=== PATIENT | female | born 1935 | race Caucasian/White ===

== ENCOUNTER 2022-09-12 14:36 | Inpatient (IN) ==
[2022-09-12] MEDS ORDERED: Glycerin ADULT 2.4 gm SUPP PR ONE (15:04)
[2022-09-12] MEDS ORDERED: Lactated Ringers 1000 ml BAG 1,000 ML IV ONE ×2 (15:09→18:13)
[2022-09-12] MEDS ORDERED: fentaNYL 100 mcg/2 ml 50 MCG/ML VIAL IV SLOW PU ONE ×2 (15:09→18:17)
[2022-09-12 18:44] LABS: ABS Lymphocytes 0.3 10^3/ul (1.0-4.8); ABS Monocytes 0.2 10^3/ul (0-0.8); ABS Neutrophils 6.5 10^3/ul (1.5-7.7); Hematocrit 34 % (35-47); Hemoglobin 11.1 g/dL (12.0-16.0); Lymphocyte % 4.5 %; Mean Corpuscular HGB Conc 33 g/dL (31-36); Mean Corpuscular Hemoglobin 29 pg (27-31); Mean Corpuscular Volume 88 fL (80-97); Mean Platelet Volume 7.8 fL (7.4-10.4); Platelet Count 158 10^3/uL (150-450); Red Blood Count 3.87 10^6 /uL (3.70-4.87); Red Cell Distribution Width 14 % (10-15); White Blood Count 7.1 10^3/uL (3.5-10.8)
[2022-09-12] MEDS ORDERED: Cefepime 1 GM in Dextrose 1 GM/50 ML BAG IV ONE (18:49)
[2022-09-12 19:02] LABS: Activated Partial Thrombo Time 23.7 seconds (26.0-38.0); INR 1.2 (0.89-1.11)
[2022-09-12 19:15] LABS: Albumin 3.4 g/dL (3.2-5.2); Albumin/Globulin Ratio 2.8 (1-3); C Reactive Protein 12.94 mg/L (<8.01); Calcium 9.2 mg/dL (8.6-10.3); Globulin 1.2 g/dL (2-4); Potassium 3.8 mmol/L (3.5-5.0); Total Bilirubin 2.1 mg/dL (0.2-1.0); Total Protein 4.6 g/dL (6.4-8.9); eGFR CKD-EPI 67.6 (>60)
[2022-09-12 20:37] LABS: High Sensitivity Troponin 1 Hr 234 pg/mL (<15)
[2022-09-12 21:31] LABS: Urine Appearance Clear; Urine Bilirubin Negative (Negative); Urine Blood 1+ (Negative); Urine Color Yellow; Urine Glucose Negative (Negative); Urine Ketones Negative (Negative); Urine Nitrite Negative (Negative); Urine Protein Negative (Negative); Urine Specific Gravity 1.016 (1.002-1.030); Urine Urobilinogen Negative (Negative)
[2022-09-12 21:41] LABS: Urine Bacteria 1+ (Absent); Urine Red Blood Cell Trace(0-2/hpf) (Absent); Urine Squamous Epithelial Cell Present (Absent); Urine White Blood Cell Trace(0-5/hpf) (Absent)
[2022-09-12 22:13] LABS: Magnesium 1.6 mg/dL (1.9-2.7)
[2022-09-12] MEDS ORDERED: Magnesium Sulfate 2 gm BAG 2 GM/50 ML BAG IVPB ONE (22:16)
[2022-09-12] MEDS ORDERED: Ondansetron 4 mg VIAL 2 MG/ML 2 ml VIAL IV PRN (22:42)
[2022-09-12] MEDS ORDERED: Albuterol HFA INHALER 8 gm MDI INH PRN (22:55)
[2022-09-12] MEDS ORDERED: Lactated Ringers 1000 ml BAG 1,000 ML IV SCH (23:45)
[2022-09-13] MEDS: cefTRIAXone 1 gm/50 mL D5W 1 GM/50 ML BAG IV SCH ×2 (00:21→22:34)
[2022-09-13] MEDS: Enoxaparin 40 MG/0.4 ML SYR SUBCUT SCH ×2 (00:23→22:37)
[2022-09-13] MEDS: Senna TAB 8.6 mg TAB PO SCH (00:24)
[2022-09-13 00:43] LABS: High Sensitivity Troponin 3 Hr 322 pg/mL (<15)
[2022-09-13] MEDS: Azithromycin 500 mg/250 ml NS 500 MG/250 ML BAG IVPB SCH (00:56)
[2022-09-13 05:19] LABS: ABS Lymphocytes 0.5 10^3/ul (1.0-4.8); ABS Monocytes 0.2 10^3/ul (0-0.8); ABS Neutrophils 4.1 10^3/ul (1.5-7.7); Eosinophil % 0.2 %; Hematocrit 34 % (35-47); Lymphocyte % 9.7 %; Mean Corpuscular HGB Conc 33 g/dL (31-36); Mean Corpuscular Hemoglobin 29 pg (27-31); Mean Corpuscular Volume 88 fL (80-97); Mean Platelet Volume 7.9 fL (7.4-10.4); Platelet Count 149 10^3/uL (150-450); Red Blood Count 3.83 10^6 /uL (3.70-4.87); Red Cell Distribution Width 15 % (10-15); White Blood Count 4.8 10^3/uL (3.5-10.8)
[2022-09-13 05:56] LABS: Anion Gap 9 mmol/L (2-11); Blood Urea Nitrogen 30 mg/dL (6-24); CO2 Carbon Dioxide 24 mmol/L (22-32); Calcium 9.3 mg/dL (8.6-10.3); Chloride 104 mmol/L (101-111); Glucose 84 mg/dL (70-100); Magnesium 1.8 mg/dL (1.9-2.7); Potassium 3.8 mmol/L (3.5-5.0); Sodium 137 mmol/L (135-145); Total Iron Binding Capacity 241 mcg/dL (250-450); Transferrin 172 mg/dL (203-362); eGFR CKD-EPI 66.7 (>60)
[2022-09-13] MEDS ORDERED: Magnesium Sulfate 2 gm BAG 2 GM/50 ML BAG IVPB ONE (06:04)
[2022-09-13 06:15] LABS: Ferritin 166.9 ng/mL (11-307)
[2022-09-13 06:18] LABS: Folate 2.29 ng/mL (5.90-24.80)
[2022-09-13 06:19] LABS: Vitamin B12 403 pg/mL (180-914)
[2022-09-13 06:20] LABS: % Iron Saturation 8 % (15-55); Iron < 20 ug/dL (50-212); Unsaturated Iron Binding 221 ug/dL
[2022-09-13 06:33] LABS: Phosphorus 3.3 mg/dL (2.5-5.0)
[2022-09-13] MEDS ORDERED: Folic Acid IV 1 MG in NS 0.9% 50 ML 50 ML IV ONE (06:45)
[2022-09-13] MEDS: Polyethylene Glycol 3350 17 GM PACKET PO SCH (07:29)
[2022-09-13] MEDS ORDERED: Lorazepam PYXIS KEY PRN (09:23)
[2022-09-13] MEDS ORDERED: LORazepam 2 mg VIAL 1 ml IV PUSH ONE (09:23)
[2022-09-13] MEDS ORDERED: Iodixanol (CONTRAST) 320 MG/ML 100 ML SDV IV ONE (16:49)
[2022-09-13] MEDS ORDERED: Lactated Ringers 1000 ml BAG 500 ML IV ONE (17:15)
[2022-09-14] MEDS: Polyethylene Glycol 3350 17 GM PACKET PO SCH ×3 (00:03→20:44)
[2022-09-14] MEDS: Magnesium Hydroxide LIQ 30 ML UDC PO SCH ×3 (00:03→20:46)
[2022-09-14] MEDS: Senna TAB 8.6 mg TAB PO SCH ×2 (00:04→20:42)
[2022-09-14] MEDS: Azithromycin 500 mg/250 ml NS 500 MG/250 ML BAG IVPB SCH ×2 (00:06→21:40)
[2022-09-14] MEDS ORDERED: Lorazepam PYXIS KEY PRN ×2 (02:21→04:33)
[2022-09-14] MEDS ORDERED: LORazepam 2 mg VIAL 1 ml IV PUSH ONE ×2 (02:22→04:33)
[2022-09-14 07:08] LABS: ABS Lymphocytes 0.6 10^3/ul (1.0-4.8); ABS Monocytes 0.3 10^3/ul (0-0.8); ABS Neutrophils 2.5 10^3/ul (1.5-7.7); Eosinophil % 0.9 %; Hematocrit 32 % (35-47); Hemoglobin 10.8 g/dL (12.0-16.0); Lymphocyte % 18.7 %; Mean Corpuscular HGB Conc 34 g/dL (31-36); Mean Corpuscular Hemoglobin 30 pg (27-31); Mean Corpuscular Volume 88 fL (80-97); Mean Platelet Volume 8.6 fL (7.4-10.4); Nucleated Red Blood Cells % 0.1; Platelet Count 143 10^3/uL (150-450); Red Blood Count 3.66 10^6 /uL (3.70-4.87); Red Cell Distribution Width 15 % (10-15); White Blood Count 3.4 10^3/uL (3.5-10.8)
[2022-09-14 07:28] LABS: Calcium 8.7 mg/dL (8.6-10.3); Potassium 3.7 mmol/L (3.5-5.0); eGFR CKD-EPI 76.3 (>60)
[2022-09-14] MEDS: D5W 1/2 NS 1000 ml BAG 1,000 ML IV SCH (12:03)
[2022-09-14] MEDS: cefTRIAXone 1 gm/50 mL D5W 1 GM/50 ML BAG IV SCH (20:40)
[2022-09-14] MEDS: Enoxaparin 40 MG/0.4 ML SYR SUBCUT SCH (20:44)
[2022-09-15 06:06] LABS: ABS Eosinophils 0.1 10^3/ul (0-0.6); ABS Lymphocytes 0.5 10^3/ul (1.0-4.8); ABS Monocytes 0.2 10^3/ul (0-0.8); ABS Neutrophils 2.5 10^3/ul (1.5-7.7); Hematocrit 30 % (35-47); Lymphocyte % 15.6 %; Mean Corpuscular HGB Conc 34 g/dL (31-36); Mean Corpuscular Hemoglobin 29 pg (27-31); Mean Corpuscular Volume 87 fL (80-97); Mean Platelet Volume 8.2 fL (7.4-10.4); Nucleated Red Blood Cells % 0.1; Platelet Count 130 10^3/uL (150-450); Red Blood Count 3.41 10^6 /uL (3.70-4.87); Red Cell Distribution Width 15 % (10-15); White Blood Count 3.3 10^3/uL (3.5-10.8)
[2022-09-15 06:41] LABS: Calcium 8.6 mg/dL (8.6-10.3); Potassium 3.4 mmol/L (3.5-5.0); eGFR CKD-EPI 84.8 (>60)
[2022-09-15] MEDS: Magnesium Hydroxide LIQ 30 ML UDC PO SCH ×2 (09:42→22:01)
[2022-09-15] MEDS: Polyethylene Glycol 3350 17 GM PACKET PO SCH ×2 (09:44→22:01)
[2022-09-15] MEDS ORDERED: Potassium Chloride LIQUID 20 MEQ/15 ML LIQUID PO ONE (11:16)
[2022-09-15] MEDS: Senna TAB 8.6 mg TAB PO SCH (22:02)
[2022-09-15] MEDS: cefTRIAXone 1 gm/50 mL D5W 1 GM/50 ML BAG IV SCH (22:11)
[2022-09-15] MEDS: Enoxaparin 40 MG/0.4 ML SYR SUBCUT SCH (22:12)
[2022-09-15] MEDS: D5W 1/2 NS 1000 ml BAG 1,000 ML IV SCH (22:54)
[2022-09-16] MEDS ORDERED: Furosemide 20 mg/2 ml IV VIAL IV ONE (00:39)
[2022-09-16] MEDS ORDERED: Furosemide 20 mg/2 ml IV VIAL ONE (00:43)
[2022-09-16] MEDS ORDERED: Levalbuterol 0.63MG/3ML NEB UNIT OF USE INH PRN (00:46)
[2022-09-16] MEDS ORDERED: Potassium Chloride LIQUID 20 MEQ/15 ML LIQUID PO ONE (07:03)
[2022-09-16 07:20] LABS: ABS Lymphocytes 0.4 10^3/ul (1.0-4.8); ABS Monocytes 0.3 10^3/ul (0-0.8); ABS Neutrophils 4.8 10^3/ul (1.5-7.7); Hematocrit 29 % (35-47); Hemoglobin 9.8 g/dL (12.0-16.0); Lymphocyte % 7.5 %; Mean Corpuscular HGB Conc 34 g/dL (31-36); Mean Corpuscular Hemoglobin 30 pg (27-31); Mean Corpuscular Volume 88 fL (80-97); Mean Platelet Volume 8.3 fL (7.4-10.4); Platelet Count 125 10^3/uL (150-450); Red Blood Count 3.29 10^6 /uL (3.70-4.87); Red Cell Distribution Width 14 % (10-15); White Blood Count 5.5 10^3/uL (3.5-10.8)
[2022-09-16 08:17] LABS: Calcium 8.7 mg/dL (8.6-10.3); Magnesium 1.5 mg/dL (1.9-2.7); Potassium 4.4 mmol/L (3.5-5.0); eGFR CKD-EPI 70.7 (>60)
[2022-09-16] MEDS ORDERED: Magnesium Sulfate 2 gm BAG 2 GM/50 ML BAG IVPB ONE (08:36)
[2022-09-16] MEDS: Polyethylene Glycol 3350 17 GM PACKET PO SCH ×2 (10:46→21:14)
[2022-09-16] MEDS: Magnesium Hydroxide LIQ 30 ML UDC PO SCH (10:47)
[2022-09-16 18:14] LABS: High Sensitivity Troponin 1 Hr 2726 pg/mL (<15)
[2022-09-16] MEDS: Senna TAB 8.6 mg TAB PO SCH (21:13)
[2022-09-16] MEDS: Enoxaparin 40 MG/0.4 ML SYR SUBCUT SCH (21:14)
[2022-09-16] MEDS: cefTRIAXone 1 gm/50 mL D5W 1 GM/50 ML BAG IV SCH (21:20)
[2022-09-17] MEDS ORDERED: Furosemide 20 mg/2 ml IV VIAL IV ONE (00:52)
[2022-09-17 08:14] LABS: ABS Lymphocytes 0.7 10^3/ul (1.0-4.8); ABS Monocytes 0.4 10^3/ul (0-0.8); ABS Neutrophils 9.3 10^3/ul (1.5-7.7); Eosinophil % 0.1 %; Hematocrit 34 % (35-47); Hemoglobin 11.4 g/dL (12.0-16.0); Mean Corpuscular HGB Conc 33 g/dL (31-36); Mean Corpuscular Hemoglobin 29 pg (27-31); Mean Corpuscular Volume 87 fL (80-97); Mean Platelet Volume 8.7 fL (7.4-10.4); Platelet Count 207 10^3/uL (150-450); Red Blood Count 3.94 10^6 /uL (3.70-4.87); Red Cell Distribution Width 14 % (10-15); White Blood Count 10.5 10^3/uL (3.5-10.8)
[2022-09-17 08:32] LABS: Calcium 9.4 mg/dL (8.6-10.3); HDL Cholesterol 27.3 mg/dL; Potassium 3.6 mmol/L (3.5-5.0); eGFR CKD-EPI 42.8 (>60)
[2022-09-17] MEDS: Polyethylene Glycol 3350 17 GM PACKET PO SCH ×3 (09:07→20:48)
[2022-09-17] MEDS: DOXYcycline 100 MG in NS 0.9% 250 ml 250 ML IVPB SCH ×2 (11:43→23:05)
[2022-09-17] MEDS: Senna TAB 8.6 mg TAB PO SCH (20:48)
[2022-09-17] MEDS: Enoxaparin 30 MG/0.3 ML SYR SUBCUT SCH (21:16)
[2022-09-18 07:25] LABS: ABS Eosinophils 0.1 10^3/ul (0-0.6); ABS Lymphocytes 0.7 10^3/ul (1.0-4.8); ABS Monocytes 0.4 10^3/ul (0-0.8); ABS Neutrophils 7.7 10^3/ul (1.5-7.7); Eosinophil % 0.9 %; Hematocrit 33 % (35-47); Hemoglobin 11.1 g/dL (12.0-16.0); Lymphocyte % 7.9 %; Mean Corpuscular HGB Conc 34 g/dL (31-36); Mean Corpuscular Hemoglobin 30 pg (27-31); Mean Corpuscular Volume 88 fL (80-97); Platelet Count 195 10^3/uL (150-450); Red Blood Count 3.71 10^6 /uL (3.70-4.87); Red Cell Distribution Width 14 % (10-15); White Blood Count 8.9 10^3/uL (3.5-10.8)
[2022-09-18 07:38] LABS: Calcium 9.1 mg/dL (8.6-10.3); Magnesium 1.9 mg/dL (1.9-2.7); Potassium 3.6 mmol/L (3.5-5.0); eGFR CKD-EPI 37.6 (>60)
[2022-09-18] MEDS: Polyethylene Glycol 3350 17 GM PACKET PO SCH ×2 (09:39→21:21)
[2022-09-18] MEDS: DOXYcycline 100 MG in NS 0.9% 250 ml 250 ML IVPB SCH ×2 (11:23→22:51)
[2022-09-18] MEDS: Senna TAB 8.6 mg TAB PO SCH (21:21)
[2022-09-18] MEDS: Enoxaparin 30 MG/0.3 ML SYR SUBCUT SCH (21:21)
[2022-09-19 06:05] LABS: Hematocrit 32 % (35-47); Hemoglobin 10.8 g/dL (12.0-16.0); Mean Corpuscular HGB Conc 34 g/dL (31-36); Mean Corpuscular Hemoglobin 30 pg (27-31); Mean Corpuscular Volume 88 fL (80-97); Mean Platelet Volume 8.2 fL (7.4-10.4); Platelet Count 172 10^3/uL (150-450); Red Blood Count 3.64 10^6 /uL (3.70-4.87); Red Cell Distribution Width 14 % (10-15)
[2022-09-19 06:52] LABS: Calcium 8.6 mg/dL (8.6-10.3); Magnesium 1.7 mg/dL (1.9-2.7); Potassium 3.3 mmol/L (3.5-5.0); eGFR CKD-EPI 36.3 (>60)
[2022-09-19] MEDS ORDERED: Potassium Chlor 20 meq TAB.ER PO ONE (07:24)
[2022-09-19] MEDS ORDERED: Magnesium Sulfate 2 gm BAG 2 GM/50 ML BAG IVPB ONE (07:27)
[2022-09-19] MEDS: Polyethylene Glycol 3350 17 GM PACKET PO SCH (08:22)
[2022-09-19] MEDS: DOXYcycline 100 MG in NS 0.9% 250 ml 250 ML IVPB SCH (11:34)
[2022-09-19 18:53] VITALS: BP 102/65
== END 2022-09-19 20:10 | disposition hospice, home (50) | DRG 177 ==
LOC: ED 14:36 → EDHOLD 14:36 → SUATTDRO 22:42 → EDHOLD 09-13 16:04 → MED 09-13 17:02 → MEDTELE 09-16 18:29
PROVIDERS: ADMIT Internal Medicine; ATTEND Internal Medicine